=== PATIENT | female | born 1945 | race Caucasian/White ===

== ENCOUNTER 2020-07-29 15:12 | Emergency (ER) | payer OTHER ==
[~2020-07-29] VITALS: Ht 162.6 cm; Wt 65.8 kg
[2020-07-29] MEDS ORDERED: NORFLEX100 MG PO (18:20)
[2020-07-29] MEDS ORDERED: ULTRAM 50MG TAB50 MG PO (18:20)
[2020-07-29] MEDS ORDERED: NAPROXEN SODIU220 M2 PO (18:20)
[2020-07-29 18:25] VITALS: BP 112/70
[2020-07-29] MEDS ORDERED: SENNA-DOCUSATE1 EAC1 PO (18:30)
[2020-07-29] MEDS ORDERED: NORCO5 PO (18:30)
== END 2020-07-29 18:36 | disposition home or self-care (01) ==
LOC: ER 15:12
DX: M54.5 Low back pain (principal); M25.562 Pain in left knee; R22.42 Localized swelling, mass and lump, left lower limb